=== PATIENT | male | born 1955 ===

== ENCOUNTER 2022-01-09 09:23 | Outpatient (CLI) | payer OTHER | END 2022-01-09 09:25 | disposition home or self-care (01) | LOC: SONOGRAMA 09:23 | PROVIDERS: ATTEND Specialist | DX: K40.90 Unilateral inguinal hernia, without obstruction or gangrene, not specified as recurrent (principal) ==

== ENCOUNTER 2022-02-04 05:30 | Day surgery (SDC) | payer OTHER ==
[~2022-02-04 05:30] MED LIST: TYLENOL PM PO
[2022-02-04] MEDS ORDERED: ULTRACET PO (09:47)
[2022-02-04] MEDS ORDERED: NEURONTIN600 M1 PO (09:47)
[2022-02-04] MEDS ORDERED: POLY119PG PO (09:47)
== END 2022-02-04 12:00 | disposition home or self-care (01) ==
LOC: CIR.AMB 05:30
PROVIDERS: ATTEND Surgery
DX: K40.90 Unilateral inguinal hernia, without obstruction or gangrene, not specified as recurrent (principal); Z88.0 Allergy status to penicillin; Z88.2 Allergy status to sulfonamides
CPT/HCPCS: 49650; C1781